=== PATIENT | male | born 1995 | race American Indian/Alaskan Native ===

== ENCOUNTER 2016-07-23 14:38 | Emergency (ER) | payer MEDICAID ==
[2016-07-23 14:54] VITALS: BMI 22.5
--- NOTE | 2016-07-23 14:58 | ED PDOC ---
Arrival/HPI - General Historian: Patient - General Time Seen by Provider: 07/23/16 14:44 - History of Present Illness Narrative History of Present Illness (Text): 07/23/16 14:55 21yo male with no PMhx who present with complaint of left sided upper sternal chest pain x 6days now. States pain started hours after felling down 7stairs on Satuday. States he hit the area on the stairs. Have not take any pain medication. Pain is with movement, deep inspiration and cough. He denies fever, chills, nausea, vomiting, diaphoresis, Le edema, calf pain, any other complaint. (Tato,Happiness A) Past Medical History - Provider Review Nursing Documentation Reviewed: Yes - Past History Past History: No Previous - Infectious Disease Hx of Infectious Diseases: None - Tetanus Immunization Tetanus Immunization: Unknown - Past Medical History Past Medical History: No Previous - Psychiatric Hx Depression: No Hx Substance Use: No - Past Surgical History Past Surgical History: No Previous - Suicidal Assessment Feels Threatened In Home Enviroment: No Family/Social History - Physician Review Nursing Documentation Reviewed: Yes Family/Social History: Unknown Family HX Smoking Status: Light Smoker < 10 Cigarettes Daily Hx Alcohol Use: Yes Hx Substance Use: No Hx Substance Use Treatment: No Allergies/Home Meds Allergies/Adverse Reactions: Allergies No Known Allergies Allergy (Verified 07/23/16 14:54) Review of Systems - Physician Review All systems were reviewed & negative as marked: Yes - Review of Systems Constitutional: Normal Eyes: Normal ENT: Normal Respiratory: Normal Cardiovascular: Chest Pain. absent: Palpitations, Edema, Calf Pain, EDMONDS, Orthopnea, Syncope Gastrointestinal: Normal Genitourinary Male: Normal Musculoskeletal: Normal Skin: Normal Neurological: Normal Endocrine: Normal Hemo/Lymphatic: Normal Psychiatric: Normal Physical Exam Vital Signs Reviewed: Yes Temperature: Afebrile Blood Pressure: Normal Pulse: Regular Respiratory Rate: Normal Appearance: Positive for: Well-Appearing, Non-Toxic, Comfortable Pain Distress: None Mental Status: Positive for: Alert and Oriented X 3 - Systems Exam Head: Present: Atraumatic, Normocephalic Pupils: Present: PERRL Extroacular Muscles: Present: EOMI Conjunctiva: Present: Normal Mouth: Present: Moist Mucous Membranes Neck: Present: Normal Range of Motion Respiratory/Chest: Present: Clear to Auscultation, Good Air Exchange, Tender to Palpation (Left sided upper sternal chest pain). No: Respiratory Distress, Accessory Muscle Use, Wheezes, Decreased Breath Sounds, Rales, Retracting, Rhonchi, Tachypneic Cardiovascular: Present: Regular Rate and Rhythm, Normal S1, S2. No: Murmurs Abdomen: Present: Normal Bowel Sounds. No: Tenderness, Distention, Peritoneal Signs Back: Present: Normal Inspection Upper Extremity: Present: Normal Inspection. No: Cyanosis, Edema Lower Extremity: Present: Normal Inspection. No: Edema Neurological: Present: GCS=15, CN II-XII Intact, Speech Normal Skin: Present: Warm, Dry, Normal Color. No: Rashes Psychiatric: Present: Alert, Oriented x 3, Normal Insight, Normal Concentration Vital Signs Temp Pulse Resp BP Pulse Ox 07/23/16 15:14 98.3 F 71 18 115/66 98 Medical Decision Making - EKG Interpretation Interpreted by ED Physician: Yes (NSR @71bpm) ED Course and Treatment: 07/23/16 14:59 I was available for consultation during PA evaluation. The chart was reviewed by me, and I agree with disposition. The documented history was done by the physician laborer [employer]. The documented physical exam was done by the physician laborer car [employer]. The documented procedures were done by the physician laborer car [employer]. ( Edward Jade) 07/23/16 23:22 Chest xray - NAD Pt' EKG was NSR with no ST changes. Pt's pain is pleuritic. He had no cardiac risk factor and was hemodynamically stable. Result was DW the pt. He was DC home with NSAID for the pain. Referred to his PMD. (Teri Godwin) - RAD Interpretation Radiology Orders: 07/23/16 14:48 CHEST TWO VIEWS (PA/LAT) [RAD] Stat - Medication Orders Current Medication Orders: Discontinued Medications Ibuprofen (Motrin Tab) 600 mg PO STAT STA Stop: 07/23/16 14:50 Last Admin: 07/23/16 15:25 Dose: 600 mg Disposition/Present on Arrival - Present on Arrival Any Indicators Present on Arrival: No History of DVT/PE: No History of Uncontrolled Diabetes: No Urinary Catheter: No History Surgical Site Infection Following: None - Disposition Have Diagnosis and Disposition been Completed?: Yes Disposition Time: 15:35 Patient Plan: Discharge - Disposition Diagnosis: Pleuritic chest pain Disposition: HOME/ ROUTINE Condition: STABLE Discharge Instructions (ExitCare): Chest Pain (ED) Additional Instructions: Follow up with your doctor Return to ED for any new or worsening symptoms Prescriptions: Ibuprofen [Motrin Tab] 600 mg PO Q6 #20 tab Referrals: Ramin Martinez MD [Primary Care Provider] - Follow up with primary
[2016-07-23 15:15] VITALS: BP 115/66; PULSE 71; RESP 18; TEMP 98.3; O2SAT 98
--- NOTE | 2016-07-23 15:21 | RAD ---
HISTORY: chest pain s/p trauma COMPARISON: None available TECHNIQUE: Chest PA and lateral FINDINGS: LUNGS: No focal consolidation. Please note that chest x-ray has limited sensitivity for the detection of pulmonary masses. PLEURA: No significant pleural effusion identified. No definite pneumothorax . CARDIOVASCULAR: The cardiomediastinal silhouette appears within normal limits of size. OSSEOUS STRUCTURES: No acute osseous abnormality identified. VISUALIZED UPPER ABDOMEN: Unremarkable. OTHER FINDINGS: None. IMPRESSION: No focal consolidation, significant pleural effusion, or definite pneumothorax identified.
--- NOTE | 2016-07-24 14:08 | CARD ---
APPROVED REPORT EKG Measurement Heart [id number] <Conclusion> Normal sinus rhythm Normal ECG
== END 2016-07-23 15:52 | disposition home or self-care (01) ==
LOC: ED 14:38
DX: R07.81 Pleurodynia (principal); F17.210 Nicotine dependence, cigarettes, uncomplicated

== ENCOUNTER 2017-04-23 05:39 | Emergency (ER) | payer MEDICAID ==
[2017-04-23 05:43] VITALS: BP 155/73; RESP 18; O2SAT 99
[2017-04-23 05:45] VITALS: BMI 21.9
[2017-04-23 05:46] VITALS: PULSE 114
[2017-04-23] MEDS ORDERED: Albuterol-Ipratrop 3 mg / 0.5 (3 ml) UD IH STA (05:52)
[2017-04-23] MEDS ORDERED: Acetylcysteine 20% Inhal Sol (30ml) IH ONE (05:53)
[2017-04-23 05:55] VITALS: TEMP 100.5
--- NOTE | 2017-04-23 05:57 | ED PDOC ---
Arrival/HPI - General Chief Complaint: Flu-like Symptoms Time Seen by Provider: 04/23/17 05:45 Historian: Patient - History of Present Illness Narrative History of Present Illness (Text): CC: cough, fever 04/23/17 05:54 21M with no past medical history presents with a two day history of difficulty sleeping, cough, fever. Patient had flu shot on 04/22, had difficulty sleeping the night before with chills. Patient woke up prior to this hospital visit with coughing and chills. Patient denies joint pain. Patient admits to fever, chills , nausea, loss of appetite x 1 day. Denies nausea, vomiting, diarrhea, abdominal pain, dysuria, polyuria, polydipsia, joint pain. PMH: none PSH: none PMD: Dr. Martinez 04/23/17 06:28 Time/Duration: Other (two days) Symptom Onset: Sudden Symptom Course: Worsening Activities at Onset: Rest Past Medical History - Provider Review Nursing Documentation Reviewed: Yes - Travel History Have you recently traveled outside [place] w/in the past 3 mons?: Yes - Past History Past History: No Previous - Infectious Disease Hx of Infectious Diseases: None - Tetanus Immunization Tetanus Immunization: Unknown - Past Medical History Past Medical History: No Previous - Psychiatric Hx Depression: No Hx Substance Use: No - Past Surgical History Past Surgical History: No Previous - Anesthesia Hx Anesthesia: No - Suicidal Assessment Feels Threatened In Home Enviroment: No Family/Social History - Physician Review Nursing Documentation Reviewed: Yes Family/Social History: Unknown Family HX Smoking Status: Light Smoker < 10 Cigarettes Daily Hx Alcohol Use: Yes Hx Substance Use: No Hx Substance Use Treatment: No Allergies/Home Meds Allergies/Adverse Reactions: Allergies No Known Allergies Allergy (Verified 04/23/17 05:45) Review of Systems - Physician Review All systems were reviewed & negative as marked: Yes - Review of Systems Constitutional: Fatigue, Fevers. absent: Weight Change Eyes: Normal. absent: Vision Changes, Photophobia ENT: absent: Hearing Changes, Tinnitus, TMJ Pain Respiratory: SOB, Cough. absent: Sputum, Wheezing Cardiovascular: absent: Chest Pain, Palpitations, Edema, Calf Pain Gastrointestinal: absent: Abdominal Pain, Stool Changes, Constipation, Diarrhea Genitourinary Male: absent: Dysuria, Frequency, Hematuria Musculoskeletal: absent: Arthralgias, Back Pain Skin: absent: Rash, Pruritis Neurological: absent: Headache, Dizziness, Focal Weakness, Gait Changes, Speech Changes, Facial Droop Endocrine: absent: Diaphoresis, Polyuria, Polydipsia Hemo/Lymphatic: absent: Easy Bleeding, Easy Bruising Physical Exam Vital Signs Reviewed: Yes Vital Signs Temp Pulse Resp BP Pulse Ox 04/23/17 05:54 100.5 F H 04/23/17 05:44 100.6 F H 114 H 18 155/73 H 99 04/23/17 05:42 100.5 F H 110 H 18 155/73 H 99 Temperature: Afebrile Blood Pressure: Hypertensive Pulse: Tachycardic Respiratory Rate: Normal Appearance: Positive for: Uncomfortable Pain Distress: Mild Mental Status: Positive for: Alert and Oriented X 3 - Systems Exam Head: Present: Atraumatic, Normocephalic. No: Tenderness, Contusion, Swelling, Ecchymosis Pupils: Present: PERRL Extroacular Muscles: Present: EOMI Conjunctiva: Present: Normal. No: Injected, Icteric Mouth: Present: Moist Mucous Membranes, Normal Lips, Normal Tounge. No: Dry, Drooling, Trismus Pharnyx: Present: Normal. No: ERYTHEMA, EXUDATE, TONSILS ENLARGED Nose (External): Present: Atraumatic. No: Abrasion, Contusion Neck: Present: Normal Range of Motion, Trachea Midline. No: JVD, Lymphadenopathy Respiratory/Chest: Present: Clear to Auscultation, Decreased Breath Sounds. No : Respiratory Distress, Accessory Muscle Use, Rales, Retracting, Rhonchi, Tachypneic, Tender to Palpation Cardiovascular: Present: Regular Rate and Rhythm, Normal S1, S2, Tachycardic. No: Murmurs, Bradycardic Abdomen: Present: Normal Bowel Sounds. No: Tenderness, Distention Upper Extremity: Present: Normal Inspection, Normal ROM, Capillary Refill < 2s. No: Cyanosis, Edema Lower Extremity: Present: Normal Inspection, Normal ROM, Capillary Refill < 2 s. No: Edema, Tenderness Neurological: Present: GCS=15, CN II-XII Intact, Speech Normal Skin: Present: Warm, Dry, Rashes, Normal Color. No: Diaphoretic, Erythematous, Hot, Cold, Pale Psychiatric: Present: Alert, Oriented x 3, Normal Insight, Normal Concentration Medical Decision Making ED Course and Treatment: 04/23/17 06:05 duoneb solumedrol IVP mucolytic IVF NS 100cc/hr 04/23/17 06:47 patient states he's feeling better IVF finished finished breathing treatment Re-evaluation Time: 06:46 Reassessment Condition: Re-examined, Improving,but remains with symptoms - Medication Orders Current Medication Orders: Sodium Chloride (Sodium Chloride 0.9%) 1,000 mls @ 100 mls/hr IV .Q10H [place] Last Admin: 04/23/17 06:04 Dose: 100 mls/hr eMAR Start Stop Document 04/23/17 06:04 SS (Rec: 04/23/17 06:04 SS [id number]) Intravenous Solution Start Date 04/23/17 Start Time 06:04 Discontinued Medications Acetaminophen (Tylenol 325mg Tab) 650 mg PO STAT STA Stop: 04/23/17 05:49 Last Admin: 04/23/17 05:54 Dose: 650 mg MAR Pain/Vitals Document 04/23/17 05:54 ND (Rec: 04/23/17 05:54 ND [id number]) Pain Reassessment Is This A Pain ReAssessment? No Vitals Temperature (97.6 F-99.6 F) 100.5 F Temperature Source Oral Acetylcysteine (Acetylcysteine 20%) 4 ml IH ONCE ONE Stop: 04/23/17 06:01 Last Admin: 04/23/17 06:21 Dose: 4 ml Albuterol/Ipratropium (Duoneb 3 Mg/0.5 Mg (3 Ml) Ud) 3 ml IH STAT STA Stop: 04/23/17 05:53 Last Admin: 04/23/17 06:05 Dose: 3 ml Methylprednisolone (Solu-Medrol) 125 mg IVP STAT STA Stop: 04/23/17 05:53 Last Admin: 04/23/17 06:04 Dose: 125 mg IVP Administration Document 04/23/17 06:04 SS (Rec: 04/23/17 06:04 SS [id number]) Charges for Administration # of IVP Administrations 1 Disposition/Present on Arrival - Present on Arrival Any Indicators Present on Arrival: No History of DVT/PE: No History of Uncontrolled Diabetes: No Urinary Catheter: No History of Decub. Ulcer: No History Surgical Site Infection Following: None - Disposition Have Diagnosis and Disposition been Completed?: Yes Diagnosis: Flu Disposition: HOME/ ROUTINE Disposition Time: 06:49 Patient Plan: Discharge Prescriptions: Azithromycin [Z-Héctor] 250 mg PO ONCE #6 tab Referrals: Ramin Martinez MD [Primary Care Provider] - Follow up with primary Forms: [employer] ([place]ian)
[2017-04-23] MEDS ORDERED: Sodium Chloride 0.9% 1,000 ML IV SCH (06:00)
[2017-04-23] MEDS ORDERED: Acetylcysteine 20% Inhal Soln (4ml) IH ONE (06:00)
== END 2017-04-23 07:01 | disposition home or self-care (01) ==
LOC: ED 05:39
DX: J11.1 Influenza due to unidentified influenza virus with other respiratory manifestations (principal); F17.210 Nicotine dependence, cigarettes, uncomplicated
CPT/HCPCS: 96374; 99284; J2930; J7040